=== PATIENT | female | born 1990 | race American Indian/Alaskan Native ===

== ENCOUNTER 2018-02-09 00:09 | Emergency (ER) | payer BC ==
[2018-02-09 00:17] VITALS: BP 123/81
[2018-02-09] MEDS ORDERED: MOTRIN PO ONE (00:57)
--- NOTE | 2018-02-09 01:34 | XRay Report ---
FINAL REPORT EXAM: XR ELBOW 2V LT HISTORY: left elbow pain TECHNIQUE: AP and lateral views of the left elbow PRIORS: None. FINDINGS: The bones are normally aligned and mineralized. The joint spaces are well-preserved. There is no evidence of acute fracture. The soft tissues are unremarkable. IMPRESSION: No evidence of acute fracture or subluxation.
== END 2018-02-09 02:32 ==
LOC: ED 00:09
DX: M79.602 Pain in left arm (principal); Z53.21 Procedure and treatment not carried out due to patient leaving prior to being seen by health care provider